=== PATIENT | male | born 1955 | race Caucasian/White ===

== ENCOUNTER → 2020-10-26 | Outpatient (CLI) | payer OTHER ==
[~2020-10-26] MED LIST: ASPIR 8181 MG PO; AUGMENTIN 875875 MG PO; BENADRYL25 MG PO; COZAAR 50 MG TA50 M2 PO; FLOMAX0.4 MG PO; SONATA10 MG PO; ZOCOR40 MG PO
== END ==
LOC: SJCVCIMAG 11:25
PROVIDERS: ATTEND Internal Medicine
DX: I11.9 Hypertensive heart disease without heart failure (principal); E78.5 Hyperlipidemia, unspecified; Z79.899 Other long term (current) drug therapy